=== PATIENT | male | born 1960 | race African-American/Black ===

== ENCOUNTER 2023-03-19 15:09 | Emergency (ER) | payer OTHER, MEDICAID ==
[~2023-03-19] VITALS: Ht 182.9 cm; Wt 83.5 kg
[2023-03-19 15:25] VITALS: BP 121/79
--- NOTE | 2023-03-19 15:29 | NUR ---
pt ambulatory to bree w steady gait.
[2023-03-19] MEDS ORDERED: IBUPROFEN 600 MG TAB PO ONE (15:40)
[2023-03-19] MEDS ORDERED: NAPR-54 PO (17:53)
[2023-03-19] MEDS ORDERED: CYCL-711 PO (17:53)
--- NOTE | 2023-03-19 18:16 | NUR ---
Patient discharged with v/s stable. Written and verbal after care instructions given and explained. Patient alert, oriented and verbalized understanding of instructions. Ambulatory with steady gait. All questions addressed prior to discharge. ID band removed. Patient advised to follow up with PMD. Rx of FLEXERIL given. Patient educated on indication of medication including possible reaction and side effects. Opportunity to ask questions provided and answered.
== END 2023-03-19 18:16 | disposition home or self-care (01) ==
LOC: MED 15:09
DX: S16.1XXA Strain of muscle, fascia and tendon at neck level, initial encounter (principal); S80.01XA Contusion of right knee, initial encounter; Z79.899 Other long term (current) drug therapy; V89.2XXA Person injured in unspecified motor-vehicle accident, traffic, initial encounter; Y93.89 Activity, other specified; Y92.89 Other specified places as the place of occurrence of the external cause; Y99.8 Other external cause status
CPT/HCPCS: 72040; 73562; 99284

== ENCOUNTER 2023-05-11 07:30 | Emergency (ER) | payer OTHER, MEDICAID ==
[~2023-05-11] VITALS: Ht 182.9 cm; Wt 81.2 kg
[~2023-05-11 07:30] MED LIST: CYCL-711 PO; NAPR-54 PO
[2023-05-11 07:55] VITALS: BP 151/102; PULSE 80; RESP 18; TEMP 97.6; O2SAT 99
--- NOTE | 2023-05-11 08:50 | NUR ---
PATIENT AMBULATED TO ED BED 02
[2023-05-11] MEDS ORDERED: IBUPROFEN 400 MG TAB PO ONE (09:00)
--- NOTE | 2023-05-11 09:01 | NUR ---
63YO M PRESENTS W/LT FOOT PAIN AND SWELLING. PT DENIES TINGLING, NUMBNESS, FEVER, CHILLS, INJURY. AOX4, AMBULATES WITH WC DEVICE DO TO PAIN. MILD REDNESS AND SWELLING NOTED. NAD, SAFETY MAINTAINED, CALL LIGHT IN REACH. HX: HTN NKA
[2023-05-11] MEDS ORDERED: [UNRECOGNIZED DRUG - CODE] PO (09:06)
--- NOTE | 2023-05-11 09:27 | NUR ---
Patient discharged with v/s stable. Written and verbal after care instructions given and explained. Patient alert, oriented and verbalized understanding of instructions. Ambulatory with steady gait. All questions addressed prior to discharge. ID band removed. Patient advised to follow up with PMD. Rx of INDOMETHACIN given. Patient educated on indication of medication including possible reaction and side effects. Opportunity to ask questions provided and answered.
--- NOTE | 2023-05-11 09:27 | NUR ---
The patient's care was reviewed and supervised by ED Agency Nurse 9, RN, RN.
== END 2023-05-11 09:27 | disposition home or self-care (01) ==
LOC: MED 07:30
DX: M10.9 Gout, unspecified (principal); Z79.899 Other long term (current) drug therapy
CPT/HCPCS: 73630; 99283